=== PATIENT | female | born 1995 | race Hispanic/Latino ===

== ENCOUNTER 2018-06-21 11:30 | Observation (INO) | payer MEDICAID ==
[2018-06-21 12:21] LABS: APPEARANCE,URINE Clear (CLEAR); BILIRUBIN,URINE Negative (NEGATIVE); COLOR,URINE Yellow (YELLOW); GLUCOSE, URINE (UA) Negative (NEGATIVE); KETONES,URINE Negative (NEGATIVE); LEUKOCYTE ESTERASE ,URINE Large (NEGATIVE); NITRATE,URINE Negative (NEGATIVE); OCCULT BLOOD,URINE Negative (NEGATIVE); PROTEIN,URINE Negative (NEGATIVE)
[2018-06-21 13:14] LABS: BACTERIA,URINE Rare /HPF (None Seen); RBC,URINE 0-1 /HPF (0-1); SQUAMOUS EPITHELIAL CELL,UR Few /HPF (0-2); WBC,URINE 0-1 /HPF (0-1)
== END 2018-06-21 13:59 | disposition home or self-care (01) ==
LOC: LDH 11:30
PROVIDERS: ADMIT Obstetrics & Gynecology; ATTEND Obstetrics & Gynecology
DX: O26.893 Other specified pregnancy related conditions, third trimester (principal); R10.9 Unspecified abdominal pain; O99.283 Endocrine, nutritional and metabolic diseases complicating pregnancy, third trimester; E03.9 Hypothyroidism, unspecified; Z3A.37 37 weeks gestation of pregnancy
CPT/HCPCS: 81001; G0378 ×3

== ENCOUNTER 2018-07-26 22:36 | Inpatient (IN) | payer MEDICAID | END 2018-07-28 17:55 | disposition home or self-care (01) | LOC: EDH 22:36 → EDHIP 22:37 → 4CH 07-27 03:52 → WSH 07-27 16:45 | PROC: 0FT44ZZ Resection of Gallbladder, Percutaneous Endoscopic Approach (ICD-10-PCS; principal; 2018-07-27 12:30) | PROC: BF101ZZ Fluoroscopy of Bile Ducts using Low Osmolar Contrast (ICD-10-PCS; 2018-07-27 12:30) | DX: K81.0 Acute cholecystitis (principal); K80.10 Calculus of gallbladder with chronic cholecystitis without obstruction ==

== ENCOUNTER 2020-09-17 10:43 | Emergency (ER) | payer MEDICAID, OTHER ==
[~2020-09-17 10:43] MED LIST: FERR-82 PO; PNV#1CAP15 PO
[2020-09-17] MEDS ORDERED: METOCLOPRAMIDE 10 MG/2 ML VIAL ONE (11:11)
[2020-09-17] MEDS ORDERED: SODIUM CHLORIDE 0.9% 1000ML 0 ML IV ONE (11:11)
[2020-09-17] MEDS ORDERED: DiphenhydrAMINE HCL 50 MG/ML VIAL ONE ×2 (11:11→11:20)
[2020-09-17] MEDS ORDERED: KETOROLAC TROMETHAMINE 30MG/ML ONE (11:20)
[2020-09-17] MEDS ORDERED: SODIUM CHLORIDE 0.9% 1000ML 1,000 ML IV ONE (11:21)
== END 2020-09-17 13:24 | disposition home or self-care (01) ==
LOC: EDH 10:43
DX: G43.809 Other migraine, not intractable, without status migrainosus (principal); R11.2 Nausea with vomiting, unspecified
CPT/HCPCS: 81025; 96361; 96374; 96375; 99284; J1200; J1885; J2765; J7030

== ENCOUNTER 2023-03-23 20:40 | Emergency (ER) | payer OTHER, SELFPAY ==
[~2023-03-23] VITALS: Ht 170.2 cm; Wt 85.7 kg
[2023-03-23] MEDS ORDERED: ACETAMINOPHEN 500 MG TABLET PO ONE (21:30)
[2023-03-23] MEDS ORDERED: 0.9%NACL 1000ML 1,000 ML IV ONE (21:30)
[2023-03-23] MEDS ORDERED: KETOROLAC 30MG VIAL (30MG/ML) IVP ONE (21:30)
[2023-03-23 21:50] LABS: BASOPHILS # (AUTO) 0.09 K/uL (0.00-0.20); BASOPHILS % (AUTO) 0.3 % (0.0-5.0); EOSINOPHILS # (AUTO) 0.02 K/uL (0.00-0.70); EOSINOPHILS % (AUTO) 0.1 % (0.0-8.0); IMMATURE GRANULOCYTE ABSOLUTE 0.36 K/uL (0-1); LYMPHOCYTES % (AUTO) 3.4 % (21.0-51.0); MEAN CORPUSCULAR HEMOGLOBIN 28.8 pg (27.0-33.0); MEAN CORPUSCULAR VOLUME 87.1 fL (79-99); MONOCYTES # (AUTO) 1.9 K/uL (0.1-1.0); MONOCYTES % (AUTO) 6.7 % (3.0-13.0); NEUTROPHILS # (AUTO) 24.7 K/uL (1.8-7.7); NEUTROPHILS % (AUTO) 88.2 % (40.0-77.0); PLATELET COUNT (AUTO) 273 K/uL (130-400); RED BLOOD CELL COUNT(AUTO) 3.79 MIL/uL (4.00-5.50); RED CELL DISTRIBUTION WIDTH 13.2 % (11.0-15.5)
[2023-03-23 21:51] LABS: APPEARANCE,URINE CLOUDY (CLEAR); BILIRUBIN,URINE NEGATIVE (NEGATIVE); COLOR,URINE LIGHT-YELLOW (YELLOW); GLUCOSE, URINE (UA) NEGATIVE (NEGATIVE); KETONES,URINE 40 mg/dL (NEGATIVE); LEUKOCYTE ESTERASE ,URINE 25 Leu/uL (NEGATIVE); NITRATE,URINE NEGATIVE (NEGATIVE); OCCULT BLOOD,URINE MODERATE (NEGATIVE); PH,URINE 5.5 (5.0-8.0); PROTEIN,URINE 30 mg/dL (NEGATIVE); UROBILINOGEN,URINE 0.2 mg/dL (0.2-1.0)
[2023-03-23] MEDS ORDERED: KETOROLAC 15MG/ML VIAL (15MG/ML) ONE (21:59)
[2023-03-23 22:01] LABS: ADD UA MICROSCOPIC YES
[2023-03-23 22:02] LABS: CREATININE 0.9 mg/dL (0.5-1.5); POTASSIUM 4.3 mmol/L (3.5-5.1)
[2023-03-23 22:02] LABS: HCG,QUALITATIVE URINE NEGATIVE (NEGATIVE)
[2023-03-23 22:03] LABS: BACTERIA,URINE RARE /HPF (None Seen); SQUAMOUS EPITHELIAL CELL,UR MOD /HPF (0-2)
[2023-03-23 22:05] LABS: ALBUMIN 2.8 g/dL (3.5-5.0); BILIRUBIN,TOTAL 0.6 mg/dL (0.2-1.0); TOTAL PROTEIN, SERUM 7.9 g/dL (6.0-8.3)
[2023-03-23 22:14] VITALS: TEMP 101.7
[2023-03-23 22:14] LABS: INFLUENZA TYPE A Negative For Type A (NEGATIVE); INFLUENZA TYPE B Negative For Type B (NEGATIVE)
[2023-03-23 22:22] LABS: SARS-CoV-2, RNA, NAAT NEGATIVE SARS CoV-2 (NEGATIVE)
[2023-03-23] MEDS ORDERED: MORPHINE 2 MG SYG ONE (22:45)
[2023-03-23 22:53] LABS: WBC MORPHOLOGY CONSISTENT W/DIFF
[2023-03-23] MEDS ORDERED: MORPHINE 2 MG SYG IVP ONE (23:00)
[2023-03-24 01:34] VITALS: BP 95/60; PULSE 89; RESP 16; O2SAT 98
[2023-03-24] MEDS ORDERED: IOHEXOL 350 MG/ML 100ML INFUS..BTL IV ONE (02:06)
[2023-03-24 02:11] LABS: APPEARANCE,URINE CLOUDY (CLEAR); BILIRUBIN,URINE NEGATIVE (NEGATIVE); COLOR,URINE LIGHT-YELLOW (YELLOW); GLUCOSE, URINE (UA) NEGATIVE (NEGATIVE); KETONES,URINE 40 mg/dL (NEGATIVE); LEUKOCYTE ESTERASE ,URINE NEGATIVE Leu/uL (NEGATIVE); NITRATE,URINE NEGATIVE (NEGATIVE); OCCULT BLOOD,URINE MODERATE (NEGATIVE); PH,URINE 5.5 (5.0-8.0); PROTEIN,URINE NEGATIVE (NEGATIVE); UROBILINOGEN,URINE 0.2 mg/dL (0.2-1.0)
[2023-03-24 02:14] LABS: MUCUS,URINE RARE LPF (None Seen); SQUAMOUS EPITHELIAL CELL,UR MANY /HPF (0-2)
[2023-03-24] MEDS ORDERED: CEFTRIAXONE 1G VIAL IVPB ONE (04:00)
[2023-03-24] MEDS ORDERED: CEFU500T67 PO (04:00)
[2023-03-24] MEDS ORDERED: PHEN-847 PO (04:00)
== END 2023-03-24 05:18 | disposition home or self-care (01) ==
LOC: EDH 20:40
DX: T83.32XA Displacement of intrauterine contraceptive device, initial encounter (principal); N30.00 Acute cystitis without hematuria; Z79.899 Other long term (current) drug therapy; Z98.890 Other specified postprocedural states; Z20.822 Contact with and (suspected) exposure to COVID-19; X58.XXXA Exposure to other specified factors, initial encounter; Y93.89 Activity, other specified; Y92.89 Other specified places as the place of occurrence of the external cause; Y99.8 Other external cause status
CPT/HCPCS: 99284; 96374; 76856; 87635; 96361; 96375 ×2; 82550; 80053; 83690; 85025; 87040 ×2; 87088; 87804 ×2; 83605; 81001 ×2; 81025; 36415; 74177; C9803; J2270; J1885; J0696; Q9967